=== PATIENT | female | born 2000 | race Caucasian/White ===

== ENCOUNTER 2018-10-30 17:32 | Emergency (ER) | payer BC ==
[2018-10-30] MEDS: FAMOTIDINE 20 MG TAB PO (19:20)
[2018-10-30] MEDS: predniSONE 20 MG TAB PO (19:20)
[2018-10-30] MEDS: TRIMETHOPRIM/SULFAMETHOX (DS) TAB PO (19:21)
== END 2018-10-30 20:29 | disposition home or self-care (01) ==
LOC: FTE 17:32
DX: L03.114 Cellulitis of left upper limb (principal); L03.211 Cellulitis of face
CPT/HCPCS: 99283; J7512